=== PATIENT | female | born 1965 | race Hispanic/Latino ===

== ENCOUNTER 2017-05-21 17:41 | Observation (INO) | payer OTHER ==
[~2017-05-21] VITALS: Ht 157.5 cm; Wt 73.0 kg
[2017-05-21] MEDS ORDERED: MAGNESIUM/ALUMINUM/SIMETHICONE 30 ML UDC PO ONE ×2 (18:30→20:30)
[2017-05-21] MEDS ORDERED: LIDOCAINE VISC 2% SOLN 15 ML UDC PO ONE (18:30)
[2017-05-21] MEDS ORDERED: NITROGLYCERIN 2% OINT 1 GM PKT TOP ONE (19:00)
[2017-05-21] MEDS ORDERED: ASPIRIN 325 MG TAB PO ONE (19:00)
[2017-05-21] MEDS ORDERED: MORPHINE SULFATE 2 MG/ML SYR IV STA (19:35)
[2017-05-21] MEDS ORDERED: ENOXAPARIN INJ 80 MG/0.8 ML SYR SC ONE (20:00)
[2017-05-21] MEDS ORDERED: ASPIRIN 81 MG CHEW TAB PO ONE ×2 (20:30)
[2017-05-21] MEDS: NITROGLYCERIN 0.4 MG SUBL SL PRN ×3 (21:20→21:30)
--- OUTSIDE RECORDS SUMMARY | 2017-05-21 22:52 | XMS REPORT | Continuity of Care Document ---
Author Author [facility] Organization [facility] Address [address] [place] [address] Phone Unavailable Care Team Providers Care Pressure Dispatcher Name Role Phone NO, PCP PCP Unavailable Insurance Providers [employer] [address] Address [id number] [place] [address] [address] [place] [address] Email [email or web address] Payer [facility] Care Policy Number [id number] Subscriber's Name YeniferBhavnaChandni Relationship 18 Self / Same As Patient Group Number [id number] Group Name [facility] Effective Date 16 Advance Directives Directive Response Recorded Date/Time Does the patient have an advance directive? No 05/21/17 6:58pm If yes, is advance directive on file with [facility]? No 05/21/17 6:58pm If not on file with [facility] will patient provide a copy? No 05/21/17 6:58pm Do you have a Directive to Physician? No 05/21/17 6:58pm Do you have a Medical Power of University Intern? No 05/21/17 6:58pm Do you have an out of hospital Do Not Resuscitate Order? No 05/21/17 6:58pm Do you have any special needs we should be aware of? No 05/21/17 6:58pm Do you have a support person here with you today? Yes 05/21/17 6:58pm Did patient receive Notice of Privacy Practices? Yes 05/21/17 6:58pm Did patient receive patient rights and responsibilities? Yes 05/21/17 6:58pm Problems Medical Problem Onset Date Status Chest pain Unknown Medications No medication information available. Social History Smoking Status Start Date Stop Date Never Smoker Hospital Discharge Instructions No hospital discharge instruction information available. Plan of Care Discharge Date 05/21/17 10:30pm Disposition ADMITTED Condition at Discharge Stable Forms Provided Work/School Excuse Prescriptions See Medication Section Functional Status No functional status information available. Allergies, Adverse Reactions, Alerts Allergen Type Severity Reaction Status Last Updated Hydrocodone Allergy Severe unknown Active 05/21/17 Acetaminophen Allergy Severe unknown Active 05/21/17 Immunizations No immunization information available. Vital Signs Acute Vital Signs Vital Response Date/Time Pulse Pulse Rate (adult) 85 bpm (60 - 90) 05/21/2017 10:26pm Blood Pressure 141/66 mm Hg 05/21/2017 10:26pm Height 5 ft 2 in 05/21/2017 5:45pm Weight 161 lb 05/21/2017 5:45pm Body Mass Index 29.4 kg/m^2 05/21/2017 5:45pm Results No relevant diagnostic test, laboratory data and/or discharge summary information available. Procedures No procedure information available. Encounters Encounter Location Arrival/Admit Date Discharge/Depart Date Attending Provider Departed Emergency Room [facility] 05/21/17 5:41pm 10:30pm PARISH PIERSON MD
[2017-05-21 22:55] VITALS: BP 110/61
[2017-05-21 23:45] VITALS: BP 110/61
[2017-05-22] MEDS ORDERED: MORPHINE SULFATE 2 MG/ML SYR IV PRN (00:15)
[2017-05-22] MEDS ORDERED: ONDANSETRON HCL INJ 2 MG/ML VIAL IV PRN (00:15)
[2017-05-22 04:00] VITALS: BP 108/62
[2017-05-22 07:07] LABS: BASOPHILS # (AUTO) 0.1 (0.0-0.1); BASOPHILS % 0.8 % (0.0-1.0); EOSINOPHILS # (AUTO) 0.2 (0.0-0.4); HEMATOCRIT 37.4 % (34.2-44.1); HEMOGLOBIN 12.1 g/dL (12.0-16.0); LYMPHOCYTES # (AUTO) 2.8 (1.0-3.2); LYMPHOCYTES % 37.9 % (18.0-39.1); MEAN CORPUSCULAR HEMOGLOBIN 27.1 pg (28-32); MEAN CORPUSCULAR HGB CONC 32.4 g/dL (31-35); MEAN CORPUSCULAR VOLUME 83.9 fL (81-99); MONOCYTES # (AUTO) 0.5 (0.2-0.8); MONOCYTES % 6.6 % (4.4-11.3); NEUTROPHILS # (AUTO) 3.9 (2.1-6.9); NEUTROPHILS % 52.4 % (38.7-80.0); PLATELET COUNT 330 x10e3/uL (140-360); RED BLOOD COUNT 4.46 x10e6/uL (3.6-5.1); RED CELL DISTRIBUTION WIDTH 13.7 % (11.7-14.4)
[2017-05-22 07:30] LABS: ALANINE AMINOTRANSFERASE 25 IU/L (0-55); ALBUMIN 3.7 g/dL (3.5-5.0); ALKALINE PHOSPHATASE 84 IU/L (40-150); ANION GAP 11.7 mmol/L (8-16); BLOOD UREA NITROGEN 15 mg/dL (7-26); BUN/CREATININE RATIO 21 (6-25); CARBON DIOXIDE 25 mmol/L (22-29); CHLORIDE 106 mmol/L (98-107); CHOLESTEROL 166 MD/DL (0-199); EST GLOMERULAR FILTRATION RATE > 60 ML/MIN (60-); GLUCOSE 98 mg/dL (74-118); HDL CHOLESTEROL 41 MG/DL (40-60); LDL CHOLESTEROL 96 MG/DL (60-130); POTASSIUM 3.7 mmol/L (3.5-5.1); SODIUM 139 mmol/L (136-145); TRIGLYCERIDES 147 MG/DL (0-149)
[2017-05-22 07:56] VITALS: BP 124/74
[2017-05-22] MEDS ORDERED: ACETAMINOPHEN 325 MG TAB PO PRN (08:45)
[2017-05-22 08:55] VITALS: BP 124/74
[2017-05-22] MEDS ORDERED: ASPIRIN 81 MG CHEW TAB PO SCH (09:00)
--- NOTE | 2017-05-22 12:51 | Discharge Summary ---
PRIMARY CARE DOCTOR: Dr. Emiliano Meyer at [facility] FINAL DIAGNOSIS: Atypical chest pain. SECONDARY DIAGNOSIS: Breast cancer, status post surgery, in remission, 9 years ago. HISTORY: Per H and P. HOSPITAL COURSE: The patient was admitted. Her EKG was normal. Her first 2 troponins were done at a freestanding ER. The first one was 0.11, and the second one was 0.09. Here, her third troponin is less than 0.001. Her blood pressure has been stable. Currently, she is relatively chest pain-free. I had a long discussion with the patient. Given the fact that currently there is no urgent need for cardiac evaluation, the patient is stable for outpatient cardiology workup. She agrees and will follow up with her primary care doctor, Dr. Meyer. CONDITION ON DISCHARGE: Stable. DISCHARGE MEDICATIONS: Please see medication reconciliation form. ABBY MOHAMUD M.D. Job#: [id number] CC: DR. EMILIANO MEYER
== END 2017-05-22 13:40 | disposition home or self-care (01) ==
LOC: FSED 17:41 → MED/SURG 22:50 → INTOOBSV 22:50
PROVIDERS: ADMIT Internal Medicine; ATTEND Internal Medicine
DX: R07.89 Other chest pain (principal); Z85.3 Personal history of malignant neoplasm of breast; Z82.49 Family history of ischemic heart disease and other diseases of the circulatory system
CPT/HCPCS: 36415; 80053; 80061; 84484; 85025; 93005; G0378 ×2; J2270

== ENCOUNTER 2018-09-22 08:09 | Observation (INO) | payer OTHER ==
[~2018-09-22] VITALS: Ht 157.5 cm; Wt 73.0 kg
--- NOTE | 2018-09-22 08:44 | Diagnostic Imaging Report ---
EXAMINATION: CXR 2 VIEW - HOPD INDICATION: Right-sided chest pain under ribs COMPARISON: None FINDINGS: PA and lateral views TUBES and LINES: None. LUNGS: Lungs are well inflated. There is no evidence of pneumonia or pulmonary edema. PLEURA: No pleural effusion or pneumothorax. HEART AND MEDIASTINUM: The cardiomediastinal silhouette is unremarkable.. BONES AND SOFT TISSUES: No focal osseous lesions. The osseous structures are intact. There are surgical clips in the lower left breast. Left breast shadow is smaller than the right. UPPER ABDOMEN: No free air under the diaphragm. Cholecystectomy clips in the right upper quadrant. IMPRESSION: No acute thoracic abnormality to explain right chest pain. Postoperative changes of the left breast as described above. Signed by: Dr. Barbra Rosales MD on 09/22/2018 8:40 AM
--- NOTE | 2018-09-22 08:49 | NUR ---
PT REFUSING PAIN MEDS AT THIS TIME.
[2018-09-22] MEDS ORDERED: ACETAMINOPHEN 325 MG TAB PO PRN (09:15)
[2018-09-22] MEDS: FAMOTIDINE 20 MG TAB PO SCH ×2 (09:15→21:15)
[2018-09-22] MEDS ORDERED: ZOLPIDEM TARTRATE 5 MG TAB PO PRN (09:15)
[2018-09-22] MEDS ORDERED: DIPHENHYDRAMINE HCL INJ 50 MG/ML VIAL IV PRN (09:15)
[2018-09-22] MEDS ORDERED: SODIUM CHLORIDE FLUSH 10 ML SYR INJ PRN (09:15)
[2018-09-22] MEDS ORDERED: IBUPROFEN 200 MG TAB PO PRN (09:15)
[2018-09-22] MEDS ORDERED: ONDANSETRON HCL INJ 2MG/ML 2ML 2 MG/ML VIAL IV PRN (09:15)
--- OUTSIDE RECORDS SUMMARY | 2018-09-22 09:18 | XMS REPORT ---
Author [facility] Address Unknown Phone Unavailable Care Team Providers Care Presto Log Operator Name Role Phone Sandy CASILLAS Unavailable Unavailable Problems This patient has no known problems. Allergies, Adverse Reactions, Alerts This patient has no known allergies or adverse reactions. Medications This patient has no known medications. Results Test Description Test Time Test Comments Text Results Atomic Results Result Comments CXR 2 VIEW - HOPD 2018-09-22 08:39:00 [facility] [address] [place] [address] Patient Name: NETO GANDARA MR #: [id number] : 1965 Age/Sex: 53/F Req #: [id number] Adm Physician: Ordered by: MADELIN CASILLAS MD Report #: [id number] Location: [facility] Room/Bed: Procedure: [id number] HOPD/CXR 2 VIEW - HOPD Exam Date: 09/22/18 Exam Time: 0834 REPORT STATUS: Signed EXAMINATION: CXR 2 VIEW - HOPD INDICATION: Right-sided chest pain under ribs COMPARISON: None FINDINGS: PA and lateral views TUBES and LINES: None. LUNGS: Lungs are well inflated. There is no evidence of pneumonia or pulmonary edema. PLEURA: No pleural effusion or pneumothorax. HEART AND MEDIASTINUM: The cardiomediastinal silhouette is unremarkable.. BONES AND SOFT TISSUES: No focal osseous lesions. The osseous structures are intact. There are surgical clips in the lower left breast. Left breast shadow is smaller than the right. UPPER ABDOMEN: No free air under the diaphragm. Cholecystectomy clips in the right upper quadrant. IMPRESSION: No acute thoracic abnormality to explain right chest pain. Postoperative changes of the left breast as described above. Signed by: Dr. Jim Rosales MD on 09/22/2018 8:40 AM Dictated By: JIM ROSALES MD 9 Transcribed By: ANNA on 09/22/18839 COPY TO: MADELIN CASILLAS MD
--- NOTE | 2018-09-22 11:05 | NUR ---
RECEIVED REPORT FROM [facility] ER. AWAITING FOR PT TO ARRIVE TO FLOOR
--- NOTE | 2018-09-22 12:42 | NUR ---
RECEIVED PT TO FLOOR AA0X3 PLACED ON TELE AND RUNNING SR ON MONITOR PT DENIES PAIN, STATES PRESSURE TO STERNUM THAT IS TOLERABLE AT THIS TIME PT HAS AN IV TO THE RIGHT AC 20 SL PATENT AND DRY NO EDEMA NOTED TO EXTREMITIES WILL CONTINUE TO MONITOR PT CLOSELY SIDE RAILSX2, BED WHEELS LOCKED, CALL LIGHT IS WITHIN EASY REACH, INSTRUCTED TO CALL FOR ASSISTANCE IF NEEDED
[2018-09-22 12:49] VITALS: BP 143/80
[2018-09-22 13:00] VITALS: BP 143/80
--- NOTE | 2018-09-22 14:03 | NUR ---
PT STATES SHE TAKES NO HOME MEDS
[2018-09-22] MEDS ORDERED: KETOROLAC TROMETHAMINE 30 MG/ML VIAL IV NR (14:45)
[2018-09-22] MEDS ORDERED: SIMETHICONE 80 MG CHEW PO ONE (14:45)
[2018-09-22 15:16] LABS: CREATINE KINASE 72 IU/L (29-168)
[2018-09-22 16:01] VITALS: BP 131/72
[2018-09-22 20:00] VITALS: BP 142/85
[2018-09-22 21:15] VITALS: BP 142/85
[2018-09-22 23:15] LABS: CREATINE KINASE MB 0.6 ng/mL (0-5.0)
[2018-09-23 00:20] VITALS: BP 122/67
[2018-09-23 05:09] VITALS: BP 123/65
[2018-09-23 05:49] LABS: BASOPHILS % 0.5 % (0.0-1.0); EOSINOPHILS # (AUTO) 0.4 (0.0-0.4); HEMATOCRIT 41.1 % (34.2-44.1); HEMOGLOBIN 13.7 g/dL (12.0-16.0); LYMPHOCYTES # (AUTO) 2.8 (1.0-3.2); LYMPHOCYTES % 36.7 % (18.0-39.1); MEAN CORPUSCULAR HGB CONC 33.3 g/dL (31-35); MEAN CORPUSCULAR VOLUME 86.9 fL (81-99); MONOCYTES # (AUTO) 0.5 (0.2-0.8); MONOCYTES % 6.4 % (4.4-11.3); NEUTROPHILS # (AUTO) 3.9 (2.1-6.9); NEUTROPHILS % 51.1 % (38.7-80.0); PLATELET COUNT 339 x10e3/uL (140-360); RED BLOOD COUNT 4.73 x10e6/uL (3.6-5.1); RED CELL DISTRIBUTION WIDTH 12.7 % (11.7-14.4)
[2018-09-23 06:09] LABS: ANION GAP 13.3 mmol/L (8-16); BLOOD UREA NITROGEN 16 mg/dL (7-26); BUN/CREATININE RATIO 21 (6-25); CALCIUM 9.6 mg/dL (8.4-10.2); CARBON DIOXIDE 22 mmol/L (22-29); CHLORIDE 109 mmol/L (98-107); CREATININE, SERUM 0.77 mg/dL (0.57-1.11); EST GLOMERULAR FILTRATION RATE > 60 ML/MIN (60-); GLUCOSE 116 mg/dL (74-118); HDL CHOLESTEROL 42 MG/DL (40-60); MAGNESIUM 2.5 MG/DL (1.3-2.1); POTASSIUM 4.3 mmol/L (3.5-5.1); SODIUM 140 mmol/L (136-145); TRIGLYCERIDES 164 MG/DL (0-149)
[2018-09-23 06:10] LABS: CREATINE KINASE 54 IU/L (29-168)
[2018-09-23 06:30] LABS: THYROID STIMULATING HORMONE 1.531 uIU/mL (0.350-4.940)
[2018-09-23 06:43] LABS: CHOL/HDL RATIO 3.7 (3.0-3.6); CHOLESTEROL 157 MD/DL (0-199); LDL CHOLESTEROL 82 MG/DL (60-130)
--- NOTE | 2018-09-23 07:14 | NUR ---
REPORT GIVEN TO ONCOMING NURSE,WALKING ROUNDS DONE.PT RESTING IN BED WITH NO S/S OF DISTRESS.
--- NOTE | 2018-09-23 07:20 | NUR ---
RECEIVED PT TO FLOOR AA0X3 PT DENIES PAIN PT HAS AN IV TO THE RIGHT AC 20 SL PATENT AND DRY NO EDEMA NOTED TO EXTREMITIES WILL CONTINUE TO MONITOR PT CLOSELY SIDE RAILSX2, BED WHEELS LOCKED, CALL LIGHT IS WITHIN EASY REACH, INSTRUCTED TO CALL FOR ASSISTANCE IF NEEDED
[2018-09-23 08:00] VITALS: BP 104/54
[2018-09-23 08:28] VITALS: BP 104/54
[2018-09-23] MEDS: FAMOTIDINE 20 MG TAB PO SCH (08:28)
[2018-09-23] MEDS ORDERED: ASPIRIN 325 MG TAB EC PO SCH (09:00)
--- NOTE | 2018-09-23 11:42 | NUR ---
MD RODRIGUEZ STATES PT CAN DC IF CLEAR WITH MD CADE KOVACS STATES STRESS TEST IS NORMAL AND CAN DC TELE AT THIS TIME
[2018-09-23 12:50] VITALS: BP 133/84
[2018-09-23 13:31] LABS: CREATINE KINASE MB 0.8 ng/mL (0-5.0)
--- NOTE | 2018-09-23 14:05 | NUR ---
DISCHARGE INSTRUCTIONS GIVEN. PT VERBALIZED UNDERSTANDING. IV DC PRESSURE DRESSING APPLIED AND TAPED PT IS NOW OFF UNIT TO HOME
--- NOTE | 2018-09-23 15:27 | EXERCISE STRESS TEST ---
DATE OF STUDY: 09/23/2018 10:10:00 Stress Test - Treadmill ONLY TITLE OF REPORT: Exercise treadmill stress test. INDICATION FOR STUDY: Chest pain and borderline elevated troponin. TECHNICAL DETAILS: After risks, benefits, pros and cons of today's exercise treadmill stress test were explained, the patient agreed to proceed. The patient was brought down to the stress lab where 12-lead EKG monitoring and blood pressure monitoring were obtained. She exercised on Hieu protocol going from resting heart rate of 77 beats per minute to a maximum of 145 beats per minute above our target heart rate of 142 beats per minute. Blood pressure went from 126/87 to a maximum of 184/86 with an appropriate hemodynamic response. Underlying EKG revealed normal sinus rhythm, normal axis, and no ST-T wave changes. At peak exercise, there were no ischemic EKG changes or chest pain symptoms. The patient stopped in stage III of the protocol going 1 minute and 47 seconds in that stage and exercised for a total duration of 7 minutes and 47 seconds. The patient had a good exercise tolerance. CONCLUSIONS: 1. Negative exercise treadmill stress test showing no ischemic EKG changes or chest pain symptoms. 2. Overall findings of the stress test compatible with a low-risk study. 3. Findings of the stress test explained to the patient including limitations. MD FRANK Otero/[place] /[id number]
--- NOTE | 2018-09-23 17:08 | Consultation ---
DATE OF CONSULTATION: 09/23/2018 Cardiac Consultation Report REASON FOR CONSULTATION: Chest pain. HISTORY OF PRESENT ILLNESS: A 53-year-old lady in her usual status of health. She does have history of left breast cancer status post partial mastectomy and radiation therapy in 2008. She is also known to have chest pain. She had a cardiac catheterization in 2011, which was negative. She was here last year with chest pain, which was atypical. She was advised to see her PCP in [facility], which she did, but she did not have any stress test. She came to this institution complaining of right upper quadrant pain. This was started Monday, on Monday became very severe associated with nausea, but no vomiting. Of note, the patient had cholecystectomy before. There is no diaphoresis. While she was in the emergency room, the patient started having retrosternal chest pain, vague in characteristic. The patient admitted for further management. There is no history of recent travel. There is no history of hormone use. The chest pain subsided. Her right upper quadrant pain is much improved. Regarding her right upper quadrant pain, it seems to be chronic problem with periods of exacerbation. Regarding her chest pain, it seems to be very atypical with no exertional component. The patient works. Usually she does not do heavy activity, but she works fast and she pushed her computer. There is no history of trauma or anything like that. No recent travel, no pleuritic chest pain, no cough, no hemoptysis. REVIEW OF SYSTEMS: Extensive to all 14 systems, will be summarized for clarity. GENERAL: No fever, no chills, no night sweats, no weight loss, no weight gain. HEENT: No vision problem. No hearing problem. No congestion. PULMONARY AND CARDIAC: As per acute illness. All component of this two system are reviewed extensively only what mentioned above is complain. GASTROINTESTINAL: As per acute illness. No hematemesis. No melena. GENITOURINARY: No hematuria, no dysuria, no renal colicky pain. ENDOCRINE: No cold intolerance. No diabetes symptoms. HEMATOLOGY: No easy bruising. No bleeding. SKIN: No skin rash. SOCIAL HISTORY: She is . She is nonsmoker and non-alcohol drinker. 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 HOME MEDICATIONS: Occasional aspirin. ALLERGIES: HYDROCODONE. FAMILY HISTORY: Father in his 60s with melanoma cancer. Mother doing well at 74. She is hypertensive. Has 10 siblings, one brother with hypertension. One healthy son and one healthy daughter. PHYSICAL EXAMINATION: VITAL SIGNS: Height of 5 feet 2 inches, weight of 161 pounds, blood pressure 104/50, heart rate of 70, and respiratory rate of 18. HEENT: Pupils are reactive. NECK: No elevation of jugular venous pulsation. No bruit. CHEST: Clear to auscultation and percussion. HEART: PMI 5th left intercostal space. Normal first and second heart sounds. ABDOMEN: Soft with good bowel sounds. No organomegaly. No abdominal bruit. EXTREMITIES: No cyanosis, no clubbing, and no edema. NEUROLOGIC EXAM: No motor deficits. Gait is normal. No localized abnormality. Other finding no lymphadenopathy. LABORATORY DATA: Sodium of 140, potassium 4.3, BUN of 16, and creatinine of 0.8. White blood cell count of 7.5, hemoglobin of 13.1, hematocrit 41%, and platelet count of 339,000. Other lab data, triglycerides of 164, total cholesterol of 157, HDL of 42, LDL of 82, and TSH of 1.5. Troponins are normal. IMAGING DATA: EKG showing normal sinus rhythm. Chest x-ray showed surgical clips of the breast surgery and cholecystectomy. No cardiomegaly, no infiltrate. IMPRESSION AND PLAN: 1. Chest pain, atypical. 2. Chronic right upper quadrant pain with episodes of exacerbation status post cholecystectomy. 3. Left breast cancer status post surgery and radiation therapy. Her cardiac risk factor is mainly the radiation which can cause after numbers of years of coronary changes. Regardless, the patient's symptoms are very atypical. Her cardiac enzymes are normal. An echocardiogram is done, which I will review. We discussed option of workup. I will schedule the patient for stress test. The patient is seen and evaluated. Differential diagnosis are discussed. Reassurance and talking about stress test, etc. Total patient in direct care of more than 50 minutes. MD BJORN Soriano/[place] /[id number]
--- NOTE | 2018-09-24 03:06 | Discharge Summary ---
PRIMARY CARE DOCTOR: Dr. Navjot Meyer. FINAL DIAGNOSIS: Noncardiac chest pain, likely due to musculoskeletal in origin and also gastrointestinal etiology. SECONDARY DIAGNOSIS: Breast cancer 10 years ago in remission, status post left mastectomy. CONSULTANTS: Dr. Baron, Cardiology. PROCEDURES/STUDIES PERFORMED: Treadmill stress test, which was negative. HISTORY: Per H and P. HOSPITAL COURSE: The patient came in with two pains. There is one, that is right pleuritic chest pain that has been constant for a while, also worse with positional, no likelihood for PE. Also, her D-dimer was negative, which essentially ruled it out. We did try some nonsteroidals, which seemed to help and currently is completely gone. The patient also has substernal chest pressure associated with a lot of burping, possibly GI in etiology. However, it did not immediately go away with GI medications. Therefore, Cardiology was consulted. Stress test was negative. At this time, the patient is completely chest pain free, both substernal and also on the right side. Therefore, was deemed stable for discharge home. Condition on discharge, stable. The patient was seen and examined today. DISCHARGE MEDICATIONS: Please see medication reconciliation form. Of note, I have updated her primary care doctor about this visit. The patient will follow up with him in a week. MD JACLYN Tolentino/[place] /[id number] cc: [facility]
== END 2018-09-23 14:00 | disposition home or self-care (01) ==
LOC: FSED 08:09 → ERHOLD 09:15 → MED/SURG 12:40
PROVIDERS: ADMIT Internal Medicine; ATTEND Internal Medicine
DX: M94.0 Chondrocostal junction syndrome [Tietze] (principal); R07.89 Other chest pain; Z88.5 Allergy status to narcotic agent; Z85.3 Personal history of malignant neoplasm of breast; Z82.49 Family history of ischemic heart disease and other diseases of the circulatory system; Z90.49 Acquired absence of other specified parts of digestive tract; R10.11 Right upper quadrant pain
CPT/HCPCS: 36415; 71046; 80048; 80053; 80061; 82550; 82553; 83735; 83880; 84443; 84484; 85025; 85379; 85610; 93017; 93306; 99284; G0378; J1885

== ENCOUNTER 2018-09-28 17:23 | Emergency (ER) | payer OTHER ==
[~2018-09-28] VITALS: Ht 157.5 cm; Wt 76.2 kg
[2018-09-28] MEDS ORDERED: ONDANSETRON HCL INJ 2MG/ML 2ML 2 MG/ML VIAL IV STA (17:48)
[2018-09-28] MEDS ORDERED: SODIUM CHLORIDE 0.9% 1000ML 1,000 ML ONE (17:57)
[2018-09-28] MEDS ORDERED: ONDANSETRON HCL INJ 2MG/ML 2ML 2 MG/ML VIAL ONE (17:57)
[2018-09-28] MEDS ORDERED: SODIUM CHLORIDE 0.9% 1000ML 1,000 ML IV SCH (18:00)
[2018-09-28] MEDS ORDERED: IOPAMIDOL 370 MG/ML 200 ML INFUS..BTL INJ ONE (18:05)
[2018-09-28] MEDS ORDERED: SODIUM CHLORIDE 0.9% 50ML 50 ML ONE (18:06)
--- NOTE | 2018-09-28 19:04 | Diagnostic Imaging Report ---
CT Abdomen And Pelvis with Intravenous Contrast INDICATION: Right-sided abdominal pain. History of diverticulosis TECHNIQUE: Thin collimation axial images obtained from the diaphragm to the level of the pubic symphysis following the uneventful administration of 100 cc of low osmolar, nonionic intravenous contrast. Dose reduction techniques used: Automated exposure control, adjustment of the mAs and/or kVp according to patient size, standardized low-dose protocol, and/or iterative reconstruction technique. RADIATION DOSE: Total DLP: 713.6 mGy*cm Estimated effective dose: (DLP x 0.015 x size factor) mSv CTDIvol has been reviewed. It is below the limits set by the Radiation Protocol Committee (RPC). COMPARISON: None. ABDOMEN FINDINGS: Lung Bases: Trace bibasilar atelectasis. Small hiatal hernia. Liver: Steatosis. No evidence for mass. Gallbladder: Absent. No biliary ductal dilatation. Pancreas: Normal attenuation without mass or ductal dilatation. Spleen: Normal in size. No evidence of mass.. Adrenal Glands: No evidence for mass. Kidneys: Right: Normal enhancement. No soft tissue mass. No hydronephrosis. Left: Normal enhancement. No soft tissue mass. No hydronephrosis. Lymph Nodes: No enlarged abdominal or periaortic lymph nodes. Aorta: Normal in diameter PELVIS FINDINGS: Bowel: Stomach: Normal. Small Bowel: Normal in caliber with normal wall thickness. Large Bowel: Diverticulosis coli. Several diverticula are increased in attenuation suggestive of developing calcification.. No evidence of mural hyperemia or pericolonic inflammation anywhere along the course of the large bowel. Appendix: Not visualized, if present. Bladder: Underdistended. Uterus: Present with multiple nabothian cysts. There are follicles in each ovary. No adnexal mass. Peritoneum/retroperitoneum: No free fluid or fluid collection. No free air. Bones: Unremarkable for age. Soft tissues: Umbilical hernia contains fat with an aperture of 8 mm. IMPRESSION: 1. Diverticulosis coli. No CT evidence of acute diverticulitis. No bowel obstruction. 2. Nonvisualization of the appendix. If there is concern for acute appendicitis, recommend repeat CT with intravenous and enteric contrast. 3. Steatosis. 4. Cholecystectomy. Normal biliary tree. Signed by: Dr. Barbra Rosales MD on 09/28/2018 7:01 PM
[2018-09-28 21:58] VITALS: BP 143/72
== END 2018-09-28 19:50 | disposition home or self-care (01) ==
LOC: FSED 17:23
DX: R10.11 Right upper quadrant pain (principal); R11.2 Nausea with vomiting, unspecified; Z85.3 Personal history of malignant neoplasm of breast; Z87.19 Personal history of other diseases of the digestive system
CPT/HCPCS: 74177; 80048; 80076; 81003; 81025; 85025; 99283; J2405; J7030; Q9967